=== PATIENT | male | born 1950 | race Caucasian/White ===

== ENCOUNTER 2019-05-08 19:00 | Emergency (ER) | payer MEDICARE, BC ==
--- NOTE | 2019-05-08 20:07 | EDM.PDOC ---
ED HPI GENERAL MEDICAL PROBLEM - General Chief Complaint: Lower Extremity Injury/Pain Stated Complaint: LARGE LUMP ON RIGHT LEG Time Seen by Provider: 05/08/19 19:05 Source of Information: Reports: Patient History Limitations: Reports: No Limitations - History of Present Illness INITIAL COMMENTS - FREE TEXT/NARRATIVE: 69-year-old male presents for evaluation and treatment of a lump to the right anterior lower leg. Patient reports he has been sitting most of the day as they welcomed a new grandbaby yesterday. Spent most the day with his new grandchild. It was appreciated by his daughter that he had a large lump to the right anterior lower leg. Site slightly tender to touch. He does not recall any trauma to the area. He denies any chest pain or shortness of breath. Location: Reports: Upper Extremity, Right - Related Data Allergies Allergy/AdvReac Type Severity Reaction Status Date / Time No Known Allergies Allergy Verified 05/08/19 19:07 Home Meds: Home Meds Atenolol 25 mg PO DAILY 05/08/19 [History] Tamsulosin HCl 0.4 mg PO DAILY 05/08/19 [History] amLODIPine Besylate/Benazepril [Amlodipine-Benazepril 5-10 MG] 1 each PO DAILY 05/08/19 [History] Past Medical History Cardiovascular History: Reports: Hypertension Social & Family History - Tobacco Use Smoking Status *Q: Never Smoker - Recreational Drug Use Recreational Drug Use: No Review of Systems - Review of Systems Review Of Systems: See Below Respiratory: Denies: Shortness of Breath Cardiovascular: Denies: Chest Pain Skin: Reports: Lumps (right anterior lower leg) ED EXAM, GENERAL - Physical Exam Exam: See Below Exam Limited By: No Limitations General Appearance: Alert, WD/WN, No Apparent Distress Respiratory/Chest: No Respiratory Distress Cardiovascular: Normal Peripheral Pulses, Regular Rate, Rhythm Peripheral Pulses: 3+: Posterior Tibial (L), Posterior Tibial (R), Dorsalis Pedis (L), Dorsalis Pedis (R) Extremities: Other (approximately baseball sized mass to the right anterior lower leg, slightly tender to touch, no overlying erythem, n) Neurological: Alert, Oriented, Normal Cognition Psychiatric: Normal Affect, Normal Mood Skin Exam: Warm, Dry, Normal Color Course - Vital Signs Last Recorded V/S: Last Vital Signs Temp 97.8 F 05/08/19 19:05 Pulse 70 05/08/19 19:05 Resp 16 05/08/19 19:05 BP 156/98 H 05/08/19 19:05 Pulse Ox 98 05/08/19 19:05 - Radiology Interpretation Free Text/Narrative:: Right lower extremity deep venous ultrasound: Duplex and color flow imaging was obtained of the right common femoral, greater saphenous, superficial femoral , popliteal, posterior tibial, and peroneal veins. Left common femoral vein was also evaluated. Findings: Normal phasic flow, augmentation and compression is seen. Superficial hypoechoic area is seen in the area described as lump within the superficial soft tissues of the medial calf measuring 4.5 cm in greatest dimension. This shows some internal echoes and uncertain if this is due to hematoma or soft tissue abnormality/mass. Impression: 1. No evidence of deep venous thrombosis seen within the right lower extremity or within the left common femoral vein. 2. 4.5 cm finding within the superficial soft tissues of the medial calf. As mentioned above, this shows internal echoes and uncertain if this is due to hematoma or soft tissue abnormality/mass. MRI would be needed to differentiate. - Re-Assessments/Exams Free Text/Narrative Re-Assessment/Exam: 05/08/19 21:15 reviewed the imaging results with patient. I feel this is likely hematoma, however, he was advised that this could be a soft tissue mass. Will make him a disc and encouraged him to follow-up with his primary care provider. discharge instructions as documented. Departure - Departure Time of Disposition: 21:16 Disposition: Home, Self-Care 01 Condition: Fair Clinical Impression: Hematoma - Discharge Information *PRESCRIPTION DRUG MONITORING PROGRAM REVIEWED*: No *COPY OF PRESCRIPTION DRUG MONITORING REPORT IN PATIENT CORTNEY: No Instructions: Hematoma, [id number] Referrals: PCP,Not In Area [Primary Care Provider] - Forms: ED Department Discharge Additional Instructions: recommend using compression to the area. He may also use heat to the area to help break down the blood. This is likely a hematoma, however, was not able to be well visualized on ultrasound. It is possible that this is soft tissue mass. If it does not resolve or is significantly improved within one week I recommend follow-up with your primary care provider. may need to consider getting an MRI for further imaging. [id number] Tylenol as needed for pain. Please return the ER for symptoms change or worsen.
--- NOTE | 2019-05-08 20:46 | US ---
Right lower extremity deep venous ultrasound: Duplex and color flow imaging was obtained of the right common femoral, greater saphenous, superficial femoral, popliteal, posterior tibial, and peroneal veins. Left common femoral vein was also evaluated. Findings: Normal phasic flow, augmentation and compression is seen. Superficial hypoechoic area is seen in the area described as lump within the superficial soft tissues of the medial calf measuring 4.5 cm in greatest dimension. This shows some internal echoes and uncertain if this is due to hematoma or soft tissue abnormality/mass. Impression: 1. No evidence of deep venous thrombosis seen within the right lower extremity or within the left common femoral vein. 2. 4.5 cm finding within the superficial soft tissues of the medial calf. As mentioned above, this shows internal echoes and uncertain if this is due to hematoma or soft tissue abnormality/mass. MRI would be needed to differentiate. Diagnostic code #3
== END 2019-05-08 21:25 | disposition home or self-care (01) ==
LOC: JD.ED 19:00
DX: M79.89 Other specified soft tissue disorders (principal); I10 Essential (primary) hypertension; Z79.899 Other long term (current) drug therapy
CPT/HCPCS: 93971-26-RT; 93971-RT; 99282; 99284-25

== ENCOUNTER 2022-03-21 06:09 | Emergency (ER) | payer MEDICARE, BC ==
[2022-03-21] MEDS ORDERED: Sodium Chloride 0.9% 1,000 ML IV STA (06:28)
[2022-03-21] MEDS ORDERED: Sodium Chloride 0.9% 10 ML Syringe FLUSH PRN ×2 (06:28→09:00)
[2022-03-21] MEDS ORDERED: HYDROmorphone 0.5 MG/0.5 ML Syringe IVPUSH ONE (06:29)
[2022-03-21] MEDS ORDERED: Iopamidol 612 MG/ML 100 ML Bottle IVPUSH ONE (09:00)
[2022-03-21] MEDS ORDERED: Codeine/Promethazine 10-6.25 MG/5 ML Syrup 5 ML UD Cup PO ONE (10:00)
== END 2022-03-21 10:50 | disposition home or self-care (01) ==
LOC: JD.ED 06:09
DX: A08.4 Viral intestinal infection, unspecified (principal); I10 Essential (primary) hypertension; E78.00 Pure hypercholesterolemia, unspecified; Z79.899 Other long term (current) drug therapy
CPT/HCPCS: 36415; 74177; 80053; 81001; 83690; 85025; 86140; 96374; 99284; A9270; J1170; J3490; J7030; Q9967